=== PATIENT | male | born 1975 | race Caucasian/White ===

== ENCOUNTER 2017-08-31 05:22 | Emergency (ER) | payer MEDICAID ==
[~2017-08-31] VITALS: Ht 167.6 cm; Wt 91.0 kg
[2017-08-31 06:54] LABS: INR 1.1; PROTHROMBIN TIME 11.3 sec (9.4-11.6)
[2017-08-31 06:55] LABS: HEMOGLOBIN. 14.7 g/dL (14.0-18.0); LYMPHOCYTES % 47.9 % (20.0-50.0); MEAN CORPUSCULAR HEMOGLOBIN 30.2 pg (28.0-32.0); MEAN CORPUSCULAR VOLUME 88.2 fL (80.0-94.0); MEAN PLATELET VOLUME 12.2 fl (7.4-10.4); MONOCYTES % 5.6 % (2.0-8.0); NEUTROPHILS % 44.5 % (40.0-76.0); PLATELET 129 x1000/uL (130-400); RED BLOOD CELL COUNT 4.88 mill/uL (4.7-6.1); RED CELL DISTRIBUTION WIDTH 13.1 % (11.6-14.6)
[2017-08-31 07:02] LABS: CHLORIDE 109 mEq/L (98-107)
[2017-08-31 07:03] LABS: TROPONIN I < 0.02 ng/mL (0.00-0.04)
[2017-08-31] MEDS ORDERED: KETOROLAC 15MG/ML VIAL IV ONE (08:00)
[2017-08-31 08:08] VITALS: BP 137/71
[2017-08-31] MEDS ORDERED: ONDANSETRON 4MG ODT PO STA (08:14)
[2017-08-31] MEDS ORDERED: MAGNESIUM/ALUMINUM HYDROXIDE/SIMETHICONE 30ML UDC PO STA (08:14)
[2017-08-31] MEDS ORDERED: FAMOTIDINE 20MG TABLET PO ONE (08:15)
== END 2017-08-31 08:36 | disposition home or self-care (01) ==
LOC: ER 05:22
DX: R07.9 Chest pain, unspecified (principal); K70.9 Alcoholic liver disease, unspecified; D69.6 Thrombocytopenia, unspecified; R74.0 Nonspecific elevation of levels of transaminase and lactic acid dehydrogenase [LDH]; F10.10 Alcohol abuse, uncomplicated; R03.0 Elevated blood-pressure reading, without diagnosis of hypertension
CPT/HCPCS: 36415; 71045; 80053; 83880; 84484; 85025; 85610; 93005; 96374; 99285; G0482; J1885; Q0162

== ENCOUNTER 2018-01-31 13:01 | Emergency (ER) | payer MEDICAID ==
[~2018-01-31] VITALS: Ht 172.7 cm; Wt 79.0 kg
[2018-02-01] MEDS ORDERED: HYDROCODONE/ACETAMINOPHEN 5/325MG TABLET PO ONE (00:45)
[2018-02-01 00:46] LABS: BASOPHILS % 1.4 % (0.0-2.0); EOSINOPHILS % 1.2 % (0.0-5.0); HEMATOCRIT. 39.5 % (42.0-52.0); HEMOGLOBIN. 13.4 g/dL (14.0-18.0); LYMPHOCYTES % 25.3 % (20.0-50.0); MEAN CORPUSCULAR HEMOGLOBIN 29.9 pg (28.0-32.0); MEAN CORPUSCULAR VOLUME 88.5 fL (80.0-94.0); MEAN PLATELET VOLUME 12.1 fl (7.4-10.4); MONOCYTES % 8.7 % (2.0-8.0); NEUTROPHILS % 63.4 % (40.0-76.0); PLATELET 160 x1000/uL (130-400); RED BLOOD CELL COUNT 4.46 mill/uL (4.7-6.1); RED CELL DISTRIBUTION WIDTH 13.6 % (11.6-14.6)
[2018-02-01 00:53] LABS: CHLORIDE 104 mEq/L (98-107)
[2018-02-01] MEDS ORDERED: KETOROLAC 60MG/2ML VIAL IM ONE (01:30)
[2018-02-01 03:07] VITALS: BP 117/71
== END 2018-02-01 03:11 | disposition home or self-care (01) ==
LOC: ER 16:32
DX: L03.115 Cellulitis of right lower limb (principal)
CPT/HCPCS: 36415; 73610; 73630; 80048; 85025; 93971; 96372; 99285; J1885